=== PATIENT | female | born 1960 | race Caucasian/White ===

== ENCOUNTER 2017-07-20 12:40 | Day surgery (SDC) | payer BC ==
[~2017-07-20] VITALS: Ht 162.6 cm; Wt 76.8 kg
[2017-07-20] MEDS ORDERED: ATEN25 PO (13:23)
[2017-07-20] MEDS ORDERED: PRAVASTATIN SOD10 MG (13:23)
[2017-07-20] MEDS ORDERED: HYDCHL12.5 (13:23)
[2017-07-20] MEDS ORDERED: CETI5 (13:24)
== END 2017-07-20 14:45 | disposition home or self-care (01) ==
LOC: ORSCSDS 12:40
PROVIDERS: Surgery
PROC: 0DBM8ZX Excision of Descending Colon, Via Natural or Artificial Opening Endoscopic, Diagnostic (ICD-10-PCS; principal; 2017-07-20 14:00)
DX: Z12.11 Encounter for screening for malignant neoplasm of colon (principal); D12.4 Benign neoplasm of descending colon; I10 Essential (primary) hypertension; E78.5 Hyperlipidemia, unspecified; Z87.891 Personal history of nicotine dependence; Z79.899 Other long term (current) drug therapy
CPT/HCPCS: 88305; J7120

== ENCOUNTER → 2019-04-09 | Outpatient (CLI) | payer BC ==
[~2019-04-09] MED LIST: ATEN25 PO; CETI5; HYDCHL12.5; PRAVASTATIN SOD10 MG
== END | disposition home or self-care (01) ==
LOC: LAB SHORT 19:07 → LAB 19:07
DX: R30.0 Dysuria (principal)
CPT/HCPCS: 87077; 87086; 87186

== ENCOUNTER → 2021-01-09 | Outpatient (CLI) | payer BC | LOC: LAB 13:40 → LAB SHORT 13:40 | PROVIDERS: Hospitalist | DX: Z12.4 Encounter for screening for malignant neoplasm of cervix (principal); Z88.2 Allergy status to sulfonamides | CPT/HCPCS: G0145 ==

== ENCOUNTER → 2024-04-12 | Outpatient (CLI) | payer BC ==
[2024-04-12 15:44] LABS: Albumin/Globulin Ratio 1.3 (0.8-1.8); Bilirubin, Total 0.6 mg/dL (0.1-1.0); Bun/Creatinine Ratio 22.6 (12.0-20.0); Creatinine, Blood 0.71 mg/dL (0.40-1.00); Globulin, Blood 3.1 g/dL (2.2-4.0); Potassium, Blood 4.2 mmol/L (3.5-5.5); Total Protein, Blood 7.1 g/dL (6.4-8.2)
== END | disposition home or self-care (01) ==
LOC: LAB SHORT 11:45
PROVIDERS: Hospitalist
DX: I10 Essential (primary) hypertension (principal)
CPT/HCPCS: 80053